=== PATIENT | female | born 1970 | race Caucasian/White ===

== ENCOUNTER 2018-11-13 19:50 | Emergency (ER) | payer BC ==
[~2018-11-13] VITALS: Ht 167.6 cm; Wt 103.9 kg
[~2018-11-13 19:50] MED LIST: METPRE4DP PO; VENL75ER PO
[2018-11-14] MEDS ORDERED: Percocet 5-3251 EACH PO (04:53)
== END 2018-11-14 05:10 | disposition home or self-care (01) ==
LOC: ER 19:50
DX: S52.572A Other intraarticular fracture of lower end of left radius, initial encounter for closed fracture (principal); S52.612A Displaced fracture of left ulna styloid process, initial encounter for closed fracture; S62.002A Unspecified fracture of navicular [scaphoid] bone of left wrist, initial encounter for closed fracture; S42.101A Fracture of unspecified part of scapula, right shoulder, initial encounter for closed fracture; V80.010A Animal-rider injured by fall from or being thrown from horse in noncollision accident, initial encounter; Z88.1 Allergy status to other antibiotic agents; Z79.899 Other long term (current) drug therapy; Z87.891 Personal history of nicotine dependence
CPT/HCPCS: 25605; 70450; 71260; 72125; 73010; 73030; 73100; 73110; 73130; 73200; 74177; 76377; 90471; 90714; 96374-59; 99152; 99284-25; A9270; A9270-GY; J2704; J3010; J7030; Q9967

== ENCOUNTER 2018-11-17 11:30 | Day surgery (SDC) | payer BC ==
[~2018-11-17] VITALS: Ht 165.1 cm; Wt 105.6 kg
[~2018-11-17 11:30] MED LIST changes: +Percocet 5-3251 EACH PO
--- NOTE | 2018-11-17 11:36 | NUR ---
PT ADMITTED TO [facility]. AGREES WITH PLANNED SURGERY. SURGERY DELAYED DUE TO INPATIENT SURGERY.
--- NOTE | 2018-11-17 21:12 | NUR ---
discharge: PT DC TO HOME AT THIS TIME. IV DC'D WNL. VERBALIZED UNDERSTANDING OG INSTRUCTIONS, FOLLOW UP, PROBLEMS TO REPORT AND MEDICATIONS. SCRIPT GIVEN. PT LEFT VIA WHEELCHAIR TO CAR WITH BELONGINGS.
--- NOTE | 2018-11-22 12:23 | NUR ---
11/22/18 1223 Marya Cote VERIFICATIONS: EDIT CHART.
== END 2018-11-17 21:13 | disposition home or self-care (01) ==
LOC: ORSCMMR 11:30 → ORD 12:30 → SURS 19:41 → ORSCMMR 21:13
PROVIDERS: Orthopaedic Surgery
PROC: 0PSJ04Z Reposition Left Radius with Internal Fixation Device, Open Approach (ICD-10-PCS; principal; 2018-11-17 16:00)
PROC: 0PSN34Z Reposition Left Carpal with Internal Fixation Device, Percutaneous Approach (ICD-10-PCS; principal; 2018-11-17 16:00)
DX: S62.032A Displaced fracture of proximal third of navicular [scaphoid] bone of left wrist, initial encounter for closed fracture (principal); S52.572A Other intraarticular fracture of lower end of left radius, initial encounter for closed fracture; W18.30XA Fall on same level, unspecified, initial encounter; E66.01 Morbid (severe) obesity due to excess calories; Z68.38 Body mass index [BMI] 38.0-38.9, adult; Z87.891 Personal history of nicotine dependence; Z79.899 Other long term (current) drug therapy
CPT/HCPCS: A9270-GY; C1713; C1769; J0690; J1100; J1885; J2250; J2405; J2704; J3010; J7120

== ENCOUNTER 2019-02-25 10:26 | Day surgery (SDC) | payer BC ==
[~2019-02-25] VITALS: Ht 167.6 cm; Wt 112.1 kg
--- NOTE | 2019-02-25 14:43 | NUR ---
02/25/19 1443 Carlita Rose WHILE IN STEP DOWN PT DENIED NAUSEA AND PAIN. VSS WHILE IN STEP DOWN. RN WENT OVER DISCHARGE INSTRUCTIONS UNTIL ALL QUESTIONS WERE ANSWERED. PT DRESSED INDEPENDANTLY. RN PROVIDED SLING. RN WALKED PT OUT TO FRIEND'S CAR VIA STAND BY ASSIST. PT SENT HOME WITH DISCHARGE INSTRUCTIONS AND PERSONAL BELONGINGS.
== END 2019-02-25 14:41 | disposition home or self-care (01) ==
LOC: ORSCSDS 10:26
PROVIDERS: Orthopaedic Surgery
PROC: 0RPP04Z Removal of Internal Fixation Device from Left Wrist Joint, Open Approach (ICD-10-PCS; principal; 2019-02-25 11:30)
PROC: 3E0U3GC Introduction of Other Therapeutic Substance into Joints, Percutaneous Approach (ICD-10-PCS; principal; 2019-02-25 11:30)
DX: T84.84XA Pain due to internal orthopedic prosthetic devices, implants and grafts, initial encounter (principal); S52.572D Other intraarticular fracture of lower end of left radius, subsequent encounter for closed fracture with routine healing; M87.038 Idiopathic aseptic necrosis of left carpus; Z87.891 Personal history of nicotine dependence; E66.01 Morbid (severe) obesity due to excess calories; Z68.39 Body mass index [BMI] 39.0-39.9, adult; Z79.899 Other long term (current) drug therapy
CPT/HCPCS: J0171; J1100; J1885; J2250; J2405; J2704; J3010; J3301